=== PATIENT | male | born 1965 | race African-American/Black ===

== ENCOUNTER 2024-05-06 03:25 | Emergency (ER) | payer MEDICAID ==
[~2024-05-06] VITALS: Ht 182.9 cm; Wt 136.8 kg
[2024-05-06 03:54] LABS: BILIRUBIN,URINE NEGATIVE (Neg); CLARITY,URINE CLEAR (Clear); COLOR,URINE YELLOW (Yellow); GLUCOSE, URINE NEGATIVE (Neg); KETONES,URINE NEGATIVE (Neg); LEUKOCYTE ESTERASE ,URINE SMALL (Neg); NITRITES, URINE NEGATIVE (Neg); OCCULT BLOOD,URINE TRACE-INTACT (Neg); PROTEIN,URINE NEGATIVE (Neg)
[2024-05-06 03:55] LABS: UA COLLECTION TYPE CLN CATCH MIDSTREAM
[2024-05-06 03:59] LABS: BACTERIA,URINE FEW /HPF (Neg); RBC,URINE 0-2 /HPF (0-2)
[2024-05-06 04:00] LABS: MUCUS STRANDS NONE SEEN /LPF (Neg); SQUAMOUS EPITHELIAL CELL,UR FEW /LPF (FEW)
[2024-05-06] MEDS ORDERED: CEPH250T PO (05:47)
[2024-05-06 05:58] VITALS: BP 128/84; PULSE 85; RESP 16; TEMP 97.9; O2SAT 98
== END 2024-05-06 05:59 | disposition home or self-care (01) ==
LOC: ER 03:26
DX: N39.0 Urinary tract infection, site not specified (principal)
CPT/HCPCS: 81001; 87088; 99283